=== PATIENT | female | born 1965 | race Caucasian/White ===

== ENCOUNTER 2018-01-02 08:02 | Outpatient (CLI) | payer BC | END 2018-01-02 08:03 | disposition home or self-care (01) | LOC: BICMAMMO 08:02 | PROVIDERS: ATTEND Physician Assistant | DX: Z12.31 Encounter for screening mammogram for malignant neoplasm of breast (principal) | CPT/HCPCS: 77063; 77067 ==

== ENCOUNTER 2018-07-07 14:50 | Outpatient (CLI) | payer BC ==
--- NOTE | 2018-07-07 15:22 | RAD ---
RIGHT FOOT 3 VIEWS: HISTORY: Right foot pain. Palpable knot on the bottom of the foot hear the 1st metatarsal. COMPARISON: None. FINDINGS: Incidental bifid medial sesamoid at the 1st metatarsophalangeal joint. No fracture or dislocation or other acute process. IMPRESSION: No fracture or dislocation. POS: OFF
== END 2018-07-07 14:51 | disposition home or self-care (01) ==
LOC: BICRAD 14:50
PROVIDERS: ATTEND Physician Assistant
DX: M79.671 Pain in right foot (principal)

== ENCOUNTER 2019-01-14 13:56 | Outpatient (CLI) | payer BC ==
--- NOTE | 2019-01-14 15:35 | MRI ---
MRI RIGHT FOOT: 01/14/2019 PROVIDED CLINICAL HISTORY: Painful lump on the plantar aspect of the right foot. FINDINGS: There is an elliptical focus of mass-like signal alteration at the plantar aspect of the medial cord of the plantar aponeurosis at its medial extent, subjacent to the level of the proximal first metatar jocelyn. This is in the region of palpable concern as marked on the skin surface by the technologist with a vitamin E capsule. This demonstrates signal intensity isointense to skeletal muscle on T1 weighted sequences and heterogeneously hypointense to skeletal muscle on fluid sensitive sequences. This isidro ures about 1.4 cm in AP dimension by about 8 mm in transverse dimension by about 3 mm in dorsal plant ar dimension. Regional marrow and muscular signal demonstrate an unremarkable MR appearance. The dorsal extensor an d plantar flexor tendons demonstrate an intact MR appearance. Alignment appears anatomic. Joint spaces appear preserved. The plantar aponeurosis appears otherwise normal. There is preservation of the normal fat signal intensity within the tarsal sinus. The courses of the regional major neurovascular structures appear unremarkable. 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 POS: OFF
== END 2019-01-14 13:57 | disposition home or self-care (01) ==
LOC: BICMRI 13:56
PROVIDERS: ATTEND Orthopaedic Surgery
DX: M79.671 Pain in right foot (principal); R22.41 Localized swelling, mass and lump, right lower limb

== ENCOUNTER 2019-01-19 08:19 | Outpatient (CLI) | payer BC ==
--- NOTE | 2019-01-19 08:57 | MMO ---
Bilateral MAMMO Bilat Diag [facility]. CLINICAL HISTORY: Patient is 53 years old and is seen for diagnostic exam. The patient has no family history of breast cancer. The patient has no personal history of cancer. VIEWS: The views performed were: bilateral craniocaudal with tomosynthesis; bilateral mediolateral oblique with tomosynthesis; and bilateral mediolateral with tomosynthesis. FILMS COMPARED: The present examination has been compared to prior imaging studies performed at [facility] on 11/01/2015, 12/17/2016, 01/02/2018 and 01/19/2019. This study has been interpreted with the assistance of computer-aided detection. MAMMOGRAM FINDINGS: There are scattered fibroglandular densities. There are no suspicious masses, suspicious calcifications, or new areas of architectural distortion. There are no mammographic or sonographic abnormalities in the area of palpable concern. The patient is referred back to her clinician. Negative imaging findings should not preclude biopsy if clinical findings are suspicious. IMPRESSION: THERE IS NO MAMMOGRAPHIC EVIDENCE OF MALIGNANCY. THE RESULTS OF THIS EXAM WERE SENT TO THE PATIENT. ACR BI-RADS Category 1 - Negative MAMMOGRAPHY NOTE: 1. A negative mammogram report should not delay a biopsy if a dominant of clinically suspicious mass is present. 2. Approximately 10% to 15% of breast cancers are not detected by mammography. 3. Adenosis and dense breasts may obscure an underlying neoplasm. Reported by: ROXY AQUINO MD Electonically Signed: [id number]
--- NOTE | 2019-01-19 10:28 | ULT ---
LIMITED LEFT BREAST ULTRASOUND: Date: 01/19/19 PROVIDED CLINICAL HISTORY: Left breast palpable abnormality. FINDINGS: Limited sonographic interrogation was performed of the left breast at the 12 to 2 o'clock positions i n the region of palpable concern. The sonographic appearance of the breast tissue in this region is n ormal. IMPRESSION: BI-RADS Category 1 - Negative. Negative imaging findings should not preclude further evaluation of a clinically suspicious finding. The patient is referred back to her clinician. POS: OFF
== END 2019-01-19 08:20 | disposition home or self-care (01) ==
LOC: BICMAMMO 08:19
PROVIDERS: ATTEND Family Medicine
DX: N63.20 Unspecified lump in the left breast, unspecified quadrant (principal)
CPT/HCPCS: 77066; G0279

== ENCOUNTER 2020-04-19 10:03 | Outpatient (CLI) | payer BC, OTHER ==
--- NOTE | 2020-04-19 10:51 | MMO ---
Bilateral MAMMO Bilat Screen [facility]. CLINICAL HISTORY: Patient is 54 years old and is seen for screening. The patient has no family history of breast cancer. The patient has no personal history of cancer. VIEWS: The views performed were: bilateral craniocaudal with tomosynthesis and bilateral mediolateral oblique with tomosynthesis. FILMS COMPARED: The present examination has been compared to prior imaging studies performed at [facility] on 12/17/2016, 01/02/2018 and 01/19/2019. This study has been interpreted with the assistance of computer-aided detection. MAMMOGRAM FINDINGS: There are scattered fibroglandular densities. There are intramammary lymph nodes seen in both breasts. There are no suspicious masses, suspicious calcifications, or new areas of architectural distortion. IMPRESSION: THERE IS NO MAMMOGRAPHIC EVIDENCE OF MALIGNANCY. A ROUTINE FOLLOW-UP MAMMOGRAM IN 1 YEAR IS RECOMMENDED. THE RESULTS OF THIS EXAM WERE SENT TO THE PATIENT. ACR BI-RADS Category 2 - Benign finding MAMMOGRAPHY NOTE: 1. A negative mammogram report should not delay a biopsy if a dominant of clinically suspicious mass is present. 2. Approximately 10% to 15% of breast cancers are not detected by mammography. 3. Adenosis and dense breasts may obscure an underlying neoplasm. Reported by: ROXY AQUINO MD Electonically Signed: [id number]
== END 2020-04-19 10:04 | disposition home or self-care (01) ==
LOC: BICMAMMO 10:03
PROVIDERS: ATTEND Family Medicine
DX: Z12.31 Encounter for screening mammogram for malignant neoplasm of breast (principal)
CPT/HCPCS: 77063; 77067

== ENCOUNTER 2023-10-23 09:30 | Outpatient (CLI) | payer BC | END 2023-10-23 09:31 | disposition home or self-care (01) | LOC: BICMAMMO 09:30 | PROVIDERS: ATTEND Family Medicine | DX: Z12.31 Encounter for screening mammogram for malignant neoplasm of breast (principal) | CPT/HCPCS: 77063; 77067 ==

== ENCOUNTER 2024-03-05 08:18 | Outpatient (CLI) | payer BC | END 2024-03-05 08:19 | disposition home or self-care (01) | LOC: MRI 08:18 | PROVIDERS: ATTEND Family Medicine | DX: G93.89 Other specified disorders of brain (principal) | CPT/HCPCS: 70551 ==